=== PATIENT | female | born 1990 | race Asian ===

== ENCOUNTER 2018-08-28 21:03 | Inpatient (IN) | payer MEDICAID ==
[~2018-08-28] VITALS: Ht 157.5 cm; Wt 64.0 kg
[2018-08-28] MEDS ORDERED: LR 1,000 ML IV SCH (21:38)
[2018-08-28] MEDS ORDERED: LR 1,000 ML IV ONE (21:38)
[2018-08-28] MEDS ORDERED: OXYTOCIN/0.9 % SODIUM CHLORIDE 1,000 ML IV SCH (21:38)
[2018-08-28] MEDS ORDERED: AMPICILLIN SODIUM 2 GM in NS 100 ML IV ONE (21:45)
[2018-08-28] MEDS ORDERED: TERBUTALINE SULFATE 1 MG/ML VIAL SUBCUT ONE (21:45)
[2018-08-28] MEDS ORDERED: NALBUPHINE HCL 10 MG/ML AMP IM PRN (21:45)
[2018-08-28 22:02] LABS: BASOPHILS # (AUTO) 0.1 K/uL (0.0-0.2); BASOPHILS % (AUTO) 0.8 % (0.0-2.0); EOSINOPHILS # (AUTO) 0.2 K/uL (0.0-0.4); EOSINOPHILS % (AUTO) 1.9 % (0.0-4.0); HEMOGLOBIN 13.5 g/dL (12.0-16.0); LYMPHOCYTES # (AUTO) 1.8 K/uL (1.0-5.5); LYMPHOCYTES % (AUTO) 19.1 % (20.5-51.5); MEAN CORPUSCULAR HEMOGLOBIN 32 pg (27-31); MEAN CORPUSCULAR HGB CONC 35 % (32-36); MEAN CORPUSCULAR VOLUME 92 fL (79.0-98.0); MONOCYTES # (AUTO) 0.8 K/uL (0.0-1.0); MONOCYTES % (AUTO) 8.5 % (1.7-9.3); NEUTROPHILS # (AUTO) 6.5 K/uL (1.8-7.7); NEUTROPHILS % (AUTO) 69.7 % (40.0-70.0); PLATELET COUNT (AUTO) 190 K/uL (130-430); RED BLOOD CELL COUNT(AUTO) 4.23 MIL/uL (4.2-6.2); RED CELL DISTRIBUTION WIDTH 13.2 % (9.0-15.0); WHITE BLOOD COUNT (AUTO) 9.4 K/uL (4.8-10.8)
[2018-08-28] MEDS ORDERED: AMPICILLIN SODIUM 2 GM VIAL ONE (22:26)
[2018-08-28 23:06] VITALS: BP_SYST 135
[2018-08-29] MEDS: AMPICILLIN SODIUM 1 GM in NS 50 ML IV SCH ×2 (02:30→10:34)
[2018-08-29] MEDS ORDERED: AMPICILLIN SODIUM 1 GM VIAL ONE ×2 (02:34→06:31)
[2018-08-29] MEDS ORDERED: fentaNYL CITRATE/PF 100 MCG/2 ML AMP ONE (03:02)
[2018-08-29] MEDS ORDERED: ROPIVACAINE HCL/PF 0.2% 100 ML ONE (03:03)
[2018-08-29] MEDS ORDERED: LR 500 ML IV ONE (03:40)
[2018-08-29] MEDS ORDERED: FENT2mCg/mL-ROPIVA0.2%/NS EPID 100 ML EP SCH (03:45)
[2018-08-29] MEDS ORDERED: OXYTOCIN/0.9 % SODIUM CHLORIDE 1,000 ML IV ONE (11:06)
[2018-08-29] MEDS ORDERED: DERMOPLAST SPRAY TP PRN (11:15)
[2018-08-29] MEDS ORDERED: OXYCODONE/ACETAMINOPHEN 5-325 TABLET PO PRN ×2 (11:15)
[2018-08-29] MEDS ORDERED: LANOLIN 7 GM OINT. TP PRN (11:15)
[2018-08-29] MEDS ORDERED: DIPH-TET-PERTUS Vaccine 0.5 ML VIAL (ADACEL) I.M. PRN (11:15)
[2018-08-29] MEDS ORDERED: WITCH HAZEL LEAF 1 MED.PAD MED.PAD TP PRN (11:15)
[2018-08-29] MEDS ORDERED: HYDROcodone/ACETAMIN 5-325 MG TAB (NORCO/ VICODIN) PO PRN (11:15)
[2018-08-29] MEDS ORDERED: MEASLES,MUMPS&RUBELLA VACC/PF 12500 UNIT/0.5 ML VIAL SUBQ PRN (11:15)
[2018-08-29] MEDS ORDERED: METHYLERGONOVINE MALEATE 0.2 MG TABLET PO PRN (11:15)
[2018-08-29] MEDS ORDERED: RHO(D) IMMUNE GLOBULIN/MALTOSE 1500 UNITS/1.3 ML (WINHRO) IM PRN (11:15)
[2018-08-29] MEDS: IBUPROFEN 600 MG TABLET PO SCH ×2 (12:53→17:38)
[2018-08-30] MEDS: DOCUSATE SODIUM 100 MG CAPSULE PO PRN ×2 (00:01→06:01)
[2018-08-30] MEDS: IBUPROFEN 600 MG TABLET PO SCH ×3 (06:01→12:03)
[2018-08-30 06:28] LABS: HEMATOCRIT 39.3 % (36-48); HEMOGLOBIN 13.1 g/dL (12.0-16.0)
== END 2018-08-30 16:15 | disposition home or self-care (01) | DRG 560 ==
LOC: SPU 21:03
PROVIDERS: ADMIT Obstetrics & Gynecology; ATTEND Obstetrics & Gynecology
PROC: 10E0XZZ Delivery of Products of Conception, External Approach (ICD-10-PCS; principal; 2018-08-29)
PROC: 3E0R33Z Introduction of Anti-inflammatory into Spinal Canal, Percutaneous Approach (ICD-10-PCS; 2018-08-29)
PROC: 00HU33Z Insertion of Infusion Device into Spinal Canal, Percutaneous Approach (ICD-10-PCS; 2018-08-29)
DX: O99.824 Streptococcus B carrier state complicating childbirth (principal); O69.81X0 Labor and delivery complicated by cord around neck, without compression, not applicable or unspecified; Z37.0 Single live birth; Z3A.39 39 weeks gestation of pregnancy
CPT/HCPCS: 36415; 81002-TC; 85018-TC; 85025; 86592; 86886; 86900; 86901; 94760; J0290; J2590; J2795; J3010; J7120

== ENCOUNTER 2023-08-08 00:31 | Emergency (ER) | payer MEDICAID ==
[~2023-08-08] VITALS: Ht 160 cm; Wt 56.7 kg
[2023-08-08 00:42] VITALS: BP_SYST 131; PULSE 70; RESP 16; TEMP 98.5; O2SAT 100
[2023-08-08 01:04] LABS: BASOPHILS # (AUTO) 0.1 K/uL (0.0-0.2); BASOPHILS % (AUTO) 1.2 % (0.0-2.0); EOSINOPHILS # (AUTO) 0.4 K/uL (0.0-0.4); EOSINOPHILS % (AUTO) 5.1 % (0.0-4.0); HEMOGLOBIN 14.3 g/dL (12.0-16.0); LYMPHOCYTES # (AUTO) 2.8 K/uL (1.0-5.5); LYMPHOCYTES % (AUTO) 35.2 % (20.5-51.5); MEAN CORPUSCULAR HEMOGLOBIN 30 pg (27-31); MEAN CORPUSCULAR HGB CONC 35 % (32-36); MEAN CORPUSCULAR VOLUME 87 fL (79.0-98.0); MONOCYTES # (AUTO) 0.5 K/uL (0.0-1.0); MONOCYTES % (AUTO) 5.6 % (1.7-9.3); NEUTROPHILS # (AUTO) 4.3 K/uL (1.8-7.7); NEUTROPHILS % (AUTO) 52.9 % (40.0-70.0); PLATELET COUNT (AUTO) 285 K/uL (130-430); RED BLOOD CELL COUNT(AUTO) 4.69 MIL/uL (4.2-6.2); RED CELL DISTRIBUTION WIDTH 12.7 % (9.0-15.0)
[2023-08-08 01:05] LABS: BILIRUBIN,URINE NEGATIVE (NEGATIVE); BLOOD, URINE NEGATIVE (NEGATIVE); CLARITY/URINE CLEAR (CLEAR); COLOR,URINE YELLOW (YELLOW); GLUCOSE,URINE NEGATIVE (NEGATIVE); KETONES,URINE NEGATIVE (NEGATIVE); LEUKOCYTE ESTERASE ,URINE NEGATIVE (NEGATIVE); NITRITE, URINE NEGATIVE (NEGATIVE); PROTEIN URINE NEGATIVE (NEGATIVE); UROBILINOGEN,URINE 0.2 (0.2-1.0)
[2023-08-08] MEDS: MAG HYDROX/AL HYDROX/SIMETH 30 ML, DICYCLOMINE HCL 20 MG, LIDOCAINE VISCOUS 2% 15ML (PO... PO ONE (01:06)
[2023-08-08 01:53] LABS: ALBUMIN 3.8 g/dL (3.4-4.8); BILIRUBIN,DIRECT 0.2 mg/dL (0.0-0.3); CALCIUM 8.5 mg/dL (8.4-11.0); CREATININE 0.6 mg/dL (0.55-1.30); POTASSIUM 3.7 mmol/L (3.5-5.1); TOTAL BILIRUBIN 0.7 mg/dL (0.0-1.0); TOTAL PROTEIN, SERUM 7.6 g/dL (6.4-8.3)
[2023-08-08] MEDS: NACL 0.9% 1,000 ML IV ONE (03:57)
[2023-08-08] MEDS ORDERED: TRAM50TA2 PO (04:16)
[2023-08-08] MEDS ORDERED: OMEP40CA20 PO (04:16)
[2023-08-08 04:54] VITALS: BP_SYST 120; PULSE 78; RESP 20; TEMP 98.4; O2SAT 98
== END 2023-08-08 04:50 | disposition home or self-care (01) ==
LOC: SED 00:31
DX: K80.20 Calculus of gallbladder without cholecystitis without obstruction (principal); R10.13 Epigastric pain; R11.0 Nausea; Z79.899 Other long term (current) drug therapy
CPT/HCPCS: 99285; 74177; 96360; 76700; 80076; 80048; 81001; 83690; 85025; 36415; 81025; 81003; Q9967; J7030; J2001